=== PATIENT | female | born 1960 | race Caucasian/White ===

== ENCOUNTER 2017-01-01 09:47 | Inpatient (IN) | payer OTHER ==
[~2017-01-01] VITALS: Ht 160 cm; Wt 119.3 kg
[~2017-01-01 09:47] MED LIST: CADUET 10/101 TABLET PO; CARAFATE1 GM PO; CELECOXIB200 MG PO; CELEXA40 MG PO; TOFRANIL25 MG PO; VENTOLIN HFA18 GM IH; ZOCOR40 MG PO
[2017-01-18] MEDS ORDERED: TRAMADOL HCL50 MG PO (15:45)
[2017-01-18] MEDS ORDERED: NORVASC10 MG PO (15:46)
[2017-01-18] MEDS ORDERED: IRON325 M1 PO (15:47)
[2017-01-22 08:19] VITALS: BP 141/84
[2017-01-22 13:50] VITALS: BP 158/89
[2017-01-22 16:13] VITALS: BP 150/96
[2017-01-22 18:10] LABS: HEMATOCRIT 36.7 % (36.0-46.0); MCV 93.4 FL (83-99)
[2017-01-22 23:57] VITALS: BP 112/75
[2017-01-23 04:54] VITALS: BP 108/60
[2017-01-23 06:33] LABS: ANION GAP 7 MEQ/L (2-14); CHLORIDE 102 MEQ/L (99-109); GFR ESTIMATE (CALCULATED) > 59 mL/min/; GLUCOSE 128 mg/dL (70-99); POTASSIUM 3.7 MEQ/L (3.7-5.4); SAMPLE HEMOLYSIS CHECK 0; SAMPLE ICTERIC CHECK 0; SAMPLE LIPEMIA CHECK 0; SODIUM 137 MEQ/L (136-147); UREA NITROGEN (BUN) 14 mg/dL (9-23)
[2017-01-23 08:11] VITALS: BP 126/73
[2017-01-23 11:07] VITALS: BP 141/79
[2017-01-23 16:10] VITALS: BP 144/76
[2017-01-24 00:16] VITALS: BP 138/89
[2017-01-24 07:20] VITALS: BP 147/75
[2017-01-24 07:24] LABS: HEMATOCRIT 34.1 % (36.0-46.0); MCV 93.9 FL (83-99)
[2017-01-24 12:13] VITALS: BP 143/79
[2017-01-24 17:20] VITALS: BP 135/83
[2017-01-25 00:01] VITALS: BP 113/61
[2017-01-25 08:44] VITALS: BP 102/65
[2017-01-25] MEDS ORDERED: BENADRYL25 MG PO (09:56)
[2017-01-25] MEDS ORDERED: SENNA PLUS TAB1 EACH PO (09:57)
[2017-01-25] MEDS ORDERED: OXYCODONE HCL5 MG PO (09:58)
[2017-01-25] MEDS ORDERED: XARELTO10 MG PO (09:58)
[2017-01-25] MEDS ORDERED: METHOCARBAMOL750 MG PO (09:58)
== END 2017-01-25 15:16 | disposition home or self-care (01) | DRG 470 ==
LOC: 2SOUTH 09:47 → SDC 12:12 → EDSTATUS 12:13 → 2SOUTH 12:19 → 3EAST 01-22 06:44 → 2SOUTH 01-22 06:44 → 3EAST 01-22 13:38
PROVIDERS: Orthopaedic Surgery
PROC: 0SRC0J9 Replacement of Right Knee Joint with Synthetic Substitute, Cemented, Open Approach (ICD-10-PCS; principal; 2017-01-22)
DX: M17.11 Unilateral primary osteoarthritis, right knee (principal); Z68.42 Body mass index [BMI] 45.0-49.9, adult; M25.561 Pain in right knee; I10 Essential (primary) hypertension; J44.9 Chronic obstructive pulmonary disease, unspecified; E78.5 Hyperlipidemia, unspecified; K44.9 Diaphragmatic hernia without obstruction or gangrene; F32.9 Major depressive disorder, single episode, unspecified; F41.9 Anxiety disorder, unspecified; Z86.718 Personal history of other venous thrombosis and embolism; Z87.442 Personal history of urinary calculi
CPT/HCPCS: 71020; 80048; 85014; 85018; 86850; 86900; 86901; 94799; 99202; C1713; J0690; J1885; J2250; J2370; J2710; J7050; J7120; L1820; S0020